=== PATIENT | female | born 1995 | race African-American/Black ===

== ENCOUNTER → 2020-06-08 | Outpatient (CLI) | payer SELFPAY | LOC: M LABSMTC 13:21 | PROVIDERS: ATTEND Pediatrics | DX: Z20.828 Contact with and (suspected) exposure to other viral communicable diseases (principal) ==

== ENCOUNTER → 2021-08-09 | Outpatient (CLI) | payer OTHER ==
--- NOTE | 2021-08-09 16:10 | REP ---
INDICATION: GROWTH. COMPARISON: None. TECHNIQUE: Transabdominal scanning FINDINGS: Multiple ultrasonographic images of the gravid uterus shows a single living intrauterine gestation in the cephalic presentation. Doppler interrogation of the heart shows a heart rate of 144 beats per minute. The placenta is anterior fundal and not low-lying. The cervix measures 3.5 cm in length and is closed. The subjective amniotic fluid volume is within normal limits. The calculated amniotic fluid index is 18.2 with an expected range of 8.0-24.8. biophysical profile score is 2 for breathing, 2 for movement, 2 for tone, and 2 for amniotic fluid volume giving a sum total of 8/8. Doppler interrogation of the umbilical artery shows an A\B ratio of 2.70. This is within the normal range. IMPRESSION: Limited OB ultrasound as described above. <Electronically signed by Av Dinero > 08/09/21 [id number]
== END ==
LOC: M WHC 15:07
PROVIDERS: ATTEND Obstetrics & Gynecology
DX: Z34.03 Encounter for supervision of normal first pregnancy, third trimester (principal); Z3A.34 34 weeks gestation of pregnancy

== ENCOUNTER 2021-09-07 10:28 | Inpatient (IN) | payer OTHER ==
[~2021-09-07] VITALS: Ht 160 cm; Wt 79.8 kg
[2021-09-07] VITALS (7 sets, daily range): BP systolic 112–129; BP diastolic 65–87
[~2021-09-07 10:28] MED LIST: PRENTAB53 PO
[2021-09-07] MEDS ORDERED: HOME MED LIST COMPLETE! XX SCH (11:00)
[2021-09-07] MEDS ORDERED: LACTATED RINGER'S 1000 ML IV STA (11:34)
[2021-09-07] MEDS ORDERED: ceFAZolin SOD 2 GM in IV 1 EA IV ONE (11:35)
[2021-09-07] MEDS ORDERED: LR 1,000 ML IV SCH ×3 (11:35→18:20)
[2021-09-07] MEDS ORDERED: BICITRA 30ML SOLN UDC PO ONE (11:35)
[2021-09-07] MEDS ORDERED: OXYTOCIN DRIP 30 UNITS in IV 1 EA IV PRN ×4 (11:35)
[2021-09-07 12:22] LABS: HEMATOCRIT 30.9 % (36.0-47.0); HEMOGLOBIN 10.1 g/dl (12.0-15.5); MEAN CORPUSCULAR HEMOGLOBIN 26.9 pg (27.0-33.0); MEAN CORPUSCULAR HGB CONC 32.7 g/dl (32.0-36.5); MEAN CORPUSCULAR VOLUME 82.2 fl (80.0-96.0); RED BLOOD COUNT 3.76 10^6/uL (4.00-5.40); WHITE BLOOD COUNT 9.3 10^3/uL (4.0-10.0)
[2021-09-07 13:44] LABS: PLTBLUE- EDTA FREE CALC 109 K/mm3 (172-450); PLTBLUE- EDTA FREE MACHINE 99 10^3/uL (172-450)
[2021-09-07] MEDS ORDERED: MORPHINE PRES-FREE INJ 10 MG/10 ML VIAL (J2274) As Ordered ONE (16:03)
[2021-09-07] MEDS ORDERED: NALOXONE INJ 0.4MG/1ML VIAL (J2310 PER 1MG) IV PRN ×2 (16:10)
[2021-09-07] MEDS ORDERED: METOCLOPRAMIDE INJ 10MG/2ML VIAL (J2765 PER 1) IV PRN (16:10)
[2021-09-07] MEDS ORDERED: diphenhydrAMINE 50MG/ML VIAL (J1200) IV PRN (16:10)
[2021-09-07] MEDS ORDERED: NALBUPHINE HCL 10 MG/ML AMP (J2300) IV PRN (16:10)
[2021-09-07] MEDS ORDERED: ONDANSETRON 4MG/2ML VIAL IV PRN ×3 (16:10→18:20)
[2021-09-07] MEDS ORDERED: PHENYLephrine 500MCG 5ML (100MCG/ML) SYRINGE As Ordered ONE (16:19)
[2021-09-07 17:19] LABS: CORD GAS ABE A -4.8; CORD GAS HCO3 A 23.9 MEQ/L; CORD GAS O2 SAT A 35.3 %; CORD GAS PCO2 A 59.3 mmHg; CORD GAS PH A 7.223 UNITS; CORD GAS PO2 A 18.9 mmHg; CORD GAS SBC A 19.1 MEQ/L; CORD GAS TCO2 A 25.7 MEQ/L
[2021-09-07 17:22] LABS: CORD GAS ABE V -3.4; CORD GAS HCO3 V 23.8 MEQ/L; CORD GAS O2 SAT V 18.9 %; CORD GAS PCO2 V 51.3 mmHg; CORD GAS PH V 7.284 UNITS; CORD GAS PO2 V 12.6 mmHg; CORD GAS SBC V 19.9 MEQ/L; CORD GAS TCO2 V 25.4 MEQ/L
[2021-09-07] MEDS ORDERED: OXYTOCIN 30 UNITS IN 0.9% NaCl 500ML IV BAG (J2590) As Ordered ONE ×2 (18:02→18:07)
[2021-09-07] MEDS ORDERED: KETOROLAC 60MG 2ML VIAL As Ordered ONE (18:02)
[2021-09-07] MEDS ORDERED: OXYTOCIN INJ 10 UNITS/ML VIAL (J2590) As Ordered ONE (18:02)
[2021-09-07] MEDS ORDERED: ONDANSETRON 4MG/2ML VIAL As Ordered ONE (18:02)
[2021-09-07] MEDS ORDERED: oxyCODONE 5MG TAB PO PRN ×2 (18:05)
[2021-09-07] MEDS ORDERED: RHOGAM 300 MCG (1500 IU) INJ (J2790) IM SCH (18:05)
[2021-09-07] MEDS ORDERED: PROMETHAZINE 25 MG TAB PO PRN (18:05)
[2021-09-07] MEDS ORDERED: SIMETHICONE 80MG CHEW TAB PO PRN (18:05)
[2021-09-07] MEDS ORDERED: MEASLES,MUMPS,RUBELLA VACCINE INJ (MMR-II) (90707) SC SCH (18:05)
[2021-09-07] MEDS ORDERED: PERCOCET 5MG/325MG TAB PO PRN (18:20)
[2021-09-07] MEDS ORDERED: fentaNYL 100 MCG/2 ML INJECTION (J3010) As Ordered ONE (18:32)
[2021-09-07] MEDS: fentaNYL 100 MCG/2 ML INJECTION (J3010) IV PRN ×4 (18:34→18:54)
[2021-09-07] MEDS ORDERED: oxyCODONE 5MG TAB As Ordered ONE (19:20)
[2021-09-07] MEDS: DOCUSATE SODIUM 100MG CAPSULE PO SCH (21:42)
[2021-09-07] MEDS: ACETAMINOPHEN 500 MG TAB PO SCH (21:58)
[2021-09-07] MEDS: KETOROLAC 30 MG/ML 1ML VIAL IV SCH (22:57)
[2021-09-08] MEDS: ACETAMINOPHEN 500 MG TAB PO SCH ×4 (00:42→19:45)
[2021-09-08 02:01] VITALS: BP 134/69
[2021-09-08] MEDS: KETOROLAC 30 MG/ML 1ML VIAL IV SCH ×2 (05:23→12:00)
[2021-09-08 06:08] VITALS: BP 115/59
[2021-09-08] MEDS: PRENATAL VITAMINS CHEWABLE TABLET PO SCH (07:24)
[2021-09-08] MEDS: DOCUSATE SODIUM 100MG CAPSULE PO SCH ×2 (07:24→22:37)
[2021-09-08 08:01] LABS: HEMATOCRIT 25.8 % (36.0-47.0); HEMOGLOBIN 8.5 g/dl (12.0-15.5); MEAN CORPUSCULAR HEMOGLOBIN 27.2 pg (27.0-33.0); MEAN CORPUSCULAR HGB CONC 32.9 g/dl (32.0-36.5); MEAN CORPUSCULAR VOLUME 82.4 fl (80.0-96.0); PLATELET COUNT, AUTOMATED 130 10^3/uL (150-450); RED BLOOD COUNT 3.13 10^6/uL (4.00-5.40)
[2021-09-08 10:00] VITALS: BP 123/69
[2021-09-08 14:04] VITALS: BP 133/76
[2021-09-08 18:00] VITALS: BP 113/67
[2021-09-08] MEDS: IBUPROFEN 800 MG TAB PO SCH (19:45)
[2021-09-08 22:00] VITALS: BP 128/79
[2021-09-09] MEDS: ACETAMINOPHEN 500 MG TAB PO SCH ×3 (00:07→13:12)
[2021-09-09 02:00] VITALS: BP 116/61
[2021-09-09] MEDS: IBUPROFEN 800 MG TAB PO SCH ×2 (02:52→11:40)
[2021-09-09 06:00] VITALS: BP 114/75
[2021-09-09] MEDS: DOCUSATE SODIUM 100MG CAPSULE PO SCH (08:13)
[2021-09-09] MEDS: PRENATAL VITAMINS CHEWABLE TABLET PO SCH (08:13)
== END 2021-09-09 19:25 | disposition home or self-care (01) | DRG 773 ==
LOC: M LDO 10:28 → M LDI 11:41 → M OBS 09-08 02:02
PROVIDERS: ADMIT Obstetrics & Gynecology; ATTEND Obstetrics & Gynecology
PROC: 10D00Z1 Extraction of Products of Conception, Low, Open Approach (ICD-10-PCS; principal; 2021-09-07 15:00)
DX: O34.211 Maternal care for low transverse scar from previous cesarean delivery (principal); Z37.0 Single live birth; Z3A.38 38 weeks gestation of pregnancy